=== PATIENT | male | born 1980 | race African-American/Black ===

== ENCOUNTER 2022-10-26 14:59 | Emergency (ER) | payer MEDICARE ==
[2022-10-26 17:08] LABS: SARS-CoV-2 NAA Rapid Test Not Detected (NotDetected)
== END 2022-10-26 17:48 | disposition home or self-care (01) ==
LOC: CSHERS 14:59
DX: B34.9 Viral infection, unspecified (principal); R39.81 Functional urinary incontinence; Z20.822 Contact with and (suspected) exposure to COVID-19
CPT/HCPCS: 0240U; 71045; 93005; 99285